=== PATIENT | female | born 1970 | race Caucasian/White ===

== ENCOUNTER 2018-12-20 09:09 | Day surgery (SDC) | payer OTHER ==
[2018-12-20] MEDS ORDERED: ONDANSETRON 4 MG INJ IV (10:30)
[2018-12-20] MEDS ORDERED: PROPOFOL 20 ML ×2 (10:31→11:17)
[2018-12-20] MEDS ORDERED: FENTAnyl 50 MCG/ML VIAL (10:32)
== END 2018-12-20 14:11 | disposition home or self-care (01) ==
LOC: GIL 09:09
DX: Z12.11 Encounter for screening for malignant neoplasm of colon (principal); K64.8 Other hemorrhoids; K29.30 Chronic superficial gastritis without bleeding
CPT/HCPCS: 43239; 84703; 88305; 88312; 88313